=== PATIENT | female | born 1975 ===

== ENCOUNTER 2016-10-22 12:00 | Inpatient (IN) | payer MEDICARE, OTHER ==
[2016-10-22 12:11] VITALS: BMI 32.5
--- NOTE | 2016-10-22 13:09 | C.PDOC ---
Time Seen by Provider: 10/22/16 12:25 Chief Complaint (Nursing): Abdominal Pain Past Medical History Vital Signs: Last Vital Signs Temp 98.5 F 10/22/16 12:11 Pulse 83 10/22/16 12:11 Resp 18 10/22/16 12:11 BP 130/84 10/22/16 12:11 Pulse Ox 97 10/22/16 12:11 - Medical History PMH: Anemia, Anxiety, Arthritis, Back Problems, Bipolar Disorder, Bronchitis, Depression, Diverticulitis, Gastritis, Gastrointestinal Ulcer, Gall Bladder Disease, HTN, Hypercholesterolemia, Hyperlipidemia, Hypothyroidism, Kidney Stones, Migraine, Pancreatitis, Peripheral Edema, Pneumonia, Chronic Kidney Disease, Sexually Transmitted Disease (chlamydia, HSV, syphilis), Sleep Apnea, Chronic Pain Surgical History: Cholecystectomy - [facility] Procedures CENTRAL VENOUS CATHETER PLACEMENT WITH GUIDANCE (05/19/14) CLOSED ENDOSCOPIC BIOPSY OF LARGE INTESTINE (11/28/13) CLOSURE SKIN & SUBCUTANEOUS NEC (11/25/14) COLONOSCOPY (11/28/13) CONTR CEREBR ARTERIOGRAM (01/19/12) ESOPHAGOGASTRODUODENOSCOPY [EGD] W/CLOSED BIOPSY (08/27/14) EXCISION OF DESCENDING COLON, ENDO, DIAGN (01/18/16) EXCISION OF SMALL INTESTINE, ENDO, DIAGN (07/18/15) EXCISION OF STOMACH, ENDO, DIAGN (01/18/16) INJECT ANTIBIOTIC (09/03/14) INJECT/INFUSE ELECTROLYT (11/25/14) INJECT/INFUSE NEC (04/22/15) MAGNETIC RESONANCE IMAGING OF BRAIN AND BRAIN STEM (01/19/12) NEBULIZER THERAPY (05/24/12) NON-INVASIVE MECHANICAL VENTILATION (09/03/14) OCCUPATIONAL THERAPY (09/03/14) PHYSICAL THERAPY NEC (09/03/14) RETROGRADE PYELOGRAM (05/14/14) TU REMOV URETER OBSTRUCT (05/19/14) URETERAL CATHETERIZATION (05/19/14) URETEROSCOPY (05/19/14) VENOUS CATHETERIZATION NEC (05/14/14) Family History: States: Unknown Family Hx - Social History Hx Tobacco Use: No Hx Alcohol Use: No Hx Substance Use: No - Immunization History Hx Tetanus Toxoid Vaccination: No Hx Influenza Vaccination: Yes Hx Pneumococcal Vaccination: No ED Course And Treatment O2 Sat by Pulse Oximetry: 97
[2016-10-22] MEDS ORDERED: Iohexol 240 (50 ml) PO STA (13:55)
[2016-10-22] MEDS ORDERED: Sodium Chloride 0.9% 1,000 ML IV STA (13:55)
[2016-10-22] MEDS ORDERED: Morphine 4 MG/ML VIAL ONE (14:22)
[2016-10-22] MEDS ORDERED: Iohexol 240 (50 ml) ONE (14:22)
[2016-10-22] MEDS ORDERED: Sodium Chloride 0.9% 1,000 ML ONE (14:22)
[2016-10-22 14:27] LABS: BASO % 0.3 % (0.0-2.0); EOS % 0.5 % (0.0-4.0); HEMATOCRIT 40.9 % (34.0-47.0); LYMPH # 1.9 K/uL (1.0-4.3); LYMPH % 21.1 % (20.0-40.0); MEAN CORPUSCULAR HEMOGLOBIN 30.6 pg (27.0-31.0); MEAN PLATELET VOLUME 9.6 fL (7.2-11.7); MONO # 0.6 K/uL (0.0-0.8); NRBC % 0.1 % (0.0-2.0); RED CELL DISTRIBUTION WIDTH 13.7 % (11.5-14.5)
[2016-10-22 14:33] LABS: CHLORIDE 97 mmol/L (98-107)
[2016-10-22 14:34] LABS: POTASSIUM 3.1 mmol/L (3.6-5.2); SODIUM 141 mmol/L (132-148)
[2016-10-22 14:36] LABS: ALB/GLOB RATIO 1.4 (1.0-2.1); ALKALINE PHOSPHATASE 93 U/L (38-126); ALT/SGPT 38 U/L (9-52); AST/SGOT 48 U/L (14-36); BILIRUBIN,TOTAL 0.6 mg/dL (0.2-1.3); BLOOD UREA NITROGEN 13 mg/dL (7-17); CARBON DIOXIDE 27 mmol/L (22-30); GFR AFRICAN-AMERICAN > 60; GLUCOSE,RANDOM 148 mg/dL (65-105); TOTAL PROTEIN 7.3 g/dL (6.3-8.3)
[2016-10-22 14:37] LABS: CALCIUM 9.2 mg/dl (8.6-10.4)
[2016-10-22] MEDS ORDERED: Iodixanol 320 MG/ML 100 ML BOTTLE IV ONE (15:02)
[2016-10-22] MEDS ORDERED: Potassium Chloride 20 mEq ER Tab PO STA (16:22)
[2016-10-22 16:23] LABS: RBC URINE < 1 /hpf (0-3); URINE BILIRUBIN NEGATIVE (NEGATIVE); URINE BLOOD NEGATIVE (NEGATIVE); URINE COLOR Yellow (YELLOW); URINE GLUCOSE (UA) NORMAL (Normal); URINE KETONE NEGATIVE (NEGATIVE); URINE LEUKOCYTE ESTERASE NEG Leu/uL (Negative); URINE PROTEIN NEGATIVE (NEGATIVE); WBC URINE 4 /hpf (0-5)
[2016-10-22] MEDS ORDERED: Potassium Chloride 20 mEq ER Tab PO ONE (16:40)
[2016-10-22] MEDS ORDERED: HYDROmorphone 1 mg/ml ISec IVP STA (16:49)
[2016-10-22] MEDS ORDERED: HYDROmorphone 1 mg/ml ISec ONE (16:53)
--- NOTE | 2016-10-22 17:36 | C.PDOC ---
History Of Present Illness Patient is a 41 y/o female, with history of multiple abdominal surgeries, and bipolar disorder, that presents to the ED for evaluation of upper abdominal pain worse in the LUQ for the last 4 days. Pt reports associated greenish vomiting with blood. Pt also states she had diarrhea, which has resolved now. Pt also reports associated sweating, dizziness, and radiation of pain to her back. Patient was seen here previously for drug seeking behavior. Otherwise, denies any fever, chills, dysuria, hematuria, or any other associated symptoms at this time. Time Seen by Provider: 10/22/16 12:25 Chief Complaint (Nursing): Abdominal Pain History Per: Patient History/Exam Limitations: no limitations Onset/Duration Of Symptoms: Days (4) Current Symptoms Are (Timing): Still Present Location Of Pain/Discomfort: RUQ, LUQ Radiation Of Pain To:: Back Quality Of Discomfort: "Pain" Associated Symptoms: Vomiting, Back Pain. denies: Fever, Chills, Diarrhea, Loss Of Appetite, Chest Pain, Constipation, Urinary Symptoms Exacerbating Factors: None Alleviating Factors: None Recent travel outside of the [place]: No Additional History Per: Patient Abnormal Vaginal Bleeding: No Past Medical History Reviewed: Historical Data, Nursing Documentation, Vital Signs Vital Signs: Last Vital Signs Temp 98.6 F 10/22/16 15:38 Pulse 84 10/22/16 16:59 Resp 20 10/22/16 16:59 BP 122/76 10/22/16 16:59 Pulse Ox 100 10/22/16 17:51 - Medical History PMH: Anemia, Anxiety, Arthritis, Back Problems, Bipolar Disorder, Bronchitis, Depression, Diverticulitis, Gastritis, Gastrointestinal Ulcer, Gall Bladder Disease, HTN, Hypercholesterolemia, Hyperlipidemia, Hypothyroidism, Kidney Stones, Migraine, Pancreatitis, Peripheral Edema, Pneumonia, Chronic Kidney Disease, Sexually Transmitted Disease (chlamydia, HSV, syphilis), Sleep Apnea, Chronic Pain Surgical History: Cholecystectomy - [facility] Procedures CENTRAL VENOUS CATHETER PLACEMENT WITH GUIDANCE (05/19/14) CLOSED ENDOSCOPIC BIOPSY OF LARGE INTESTINE (11/28/13) CLOSURE SKIN & SUBCUTANEOUS NEC (11/25/14) COLONOSCOPY (11/28/13) CONTR CEREBR ARTERIOGRAM (01/19/12) ESOPHAGOGASTRODUODENOSCOPY [EGD] W/CLOSED BIOPSY (08/27/14) EXCISION OF DESCENDING COLON, ENDO, DIAGN (01/18/16) EXCISION OF SMALL INTESTINE, ENDO, DIAGN (07/18/15) EXCISION OF STOMACH, ENDO, DIAGN (01/18/16) INJECT ANTIBIOTIC (09/03/14) INJECT/INFUSE ELECTROLYT (11/25/14) INJECT/INFUSE NEC (04/22/15) MAGNETIC RESONANCE IMAGING OF BRAIN AND BRAIN STEM (01/19/12) NEBULIZER THERAPY (05/24/12) NON-INVASIVE MECHANICAL VENTILATION (09/03/14) OCCUPATIONAL THERAPY (09/03/14) PHYSICAL THERAPY NEC (09/03/14) RETROGRADE PYELOGRAM (05/14/14) TU REMOV URETER OBSTRUCT (05/19/14) URETERAL CATHETERIZATION (05/19/14) URETEROSCOPY (05/19/14) VENOUS CATHETERIZATION NEC (05/14/14) Family History: States: Unknown Family Hx - Social History Hx Tobacco Use: No Hx Alcohol Use: No Hx Substance Use: No - Immunization History Hx Tetanus Toxoid Vaccination: No Hx Influenza Vaccination: Yes Hx Pneumococcal Vaccination: No Review Of Systems Except As Marked, All Systems Reviewed And Found Negative. Constitutional: Positive for: Sweats. Negative for: Fever, Chills Gastrointestinal: Positive for: Vomiting, Abdominal Pain, Hematemesis. Negative for: Diarrhea, Constipation, Hematochezia Genitourinary: Negative for: Dysuria, Frequency, Hematuria Neurological: Positive for: Dizziness. Negative for: Weakness, Numbness, Headache Physical Exam - Physical Exam Appears: Non-toxic, No Acute Distress, Other (tearful) Skin: Normal Color, Warm, Dry Head: Atraumatic, Normacephalic Eye(s): bilateral: Normal Inspection, EOMI Neck: Normal ROM, Supple Chest: Symmetrical Cardiovascular: Rhythm Regular Respiratory: Normal Breath Sounds, No Rales, No Rhonchi, No Wheezing Gastrointestinal/Abdominal: Soft, No Tenderness, No Guarding, No Rebound Neurological/Psych: Oriented x3, Normal Speech, Normal Cognition ED Course And Treatment - Laboratory Results Result Diagrams: 10/22/16 14:14 10/22/16 14:14 O2 Sat by Pulse Oximetry: 100 (RA) Pulse Ox Interpretation: Normal - CT Scan/US Abd Pelvis CT Other Rad Studies (CT/US): Read By Radiologist, Radiology Report Reviewed CT/US Interpretation: FINDINGS: LOWER THORAX: No consolidation/pleural effusion. Bilateral breast augmentation prostheses. LIVER: Diffusely diminished attenuation consistent with fatty infiltration. No mass. No biliary ductal dilatation. GALLBLADDER AND BILE DUCTS: Status post cholecystectomy. PANCREAS: Unremarkable. No gross lesion or ductal dilatation. SPLEEN: Unremarkable. ADRENALS: Unremarkable. No mass. KIDNEYS AND URETERS: 7 mm nonobstructing right upper pole renal calculus. Additional punctate right renal calculi are noted. No hydronephrosis. No ureteral calculus or hydroureter. No renal mass. No left renal calculus. Lobulation of right renal contour possibly developmental. VASCULATURE: Unremarkable. No aortic aneurysm. BOWEL: Unremarkable. No obstruction. No gross mural thickening. APPENDIX: Not identified. No secondary findings to suggest acute appendicitis. PERITONEUM: Unremarkable. No free fluid. No free air. LYMPH NODES: Unremarkable. No enlarged lymph nodes. BLADDER: Suboptimally distended. Grossly unremarkable. REPRODUCTIVE: Normal uterus. BONES: No fracture. Posterior fixation at L4-5 with artificial disc spacer. OTHER FINDINGS: None. IMPRESSION: Nonobstructing right renal calculi, largest 7 mm. Status post cholecystectomy. Fatty liver. Progress Note: Labs, abd & pelvis CT ordered and reviewed. Patient was treated with IV fluids, Zofran, Pantoprazole, Dilaudid, and Morphine. Patient sts she still has severe pain and feels nauseous. Case was d/w who accepts patient to her service and requested GI consult with . Disposition - Disposition Disposition: HOSPITALIZED Disposition Time: 18:59 Condition: FAIR - Clinical Impression Clinical Impression: Intractable abdominal pain, Vomiting - PA / [employer] / Resident Statement MD/DO has reviewed & agrees with the documentation as recorded. - Scribe Statement The provider has reviewed the documentation as recorded by the Carey Go All medical record entries made by the Carey were at my direction and personally dictated by me. I have reviewed the chart and agree that the record accurately reflects my personal performance of the history, physical exam, medical decision making, and the department course for this patient. I have also personally directed, reviewed, and agree with the discharge instructions and disposition. Decision To Admit - Pt Status Changed To: Hospital Disposition Of: Observation - . Bed Request Type: Regular Admitting Physician: Lorena Goldberg Patient Diagnosis: Intractable abdominal pain, Vomiting
--- NOTE | 2016-10-22 17:41 | CT ---
PROCEDURE: CT Abdomen and Pelvis with contrast HISTORY: abd pain COMPARISON: 11/08/2015 TECHNIQUE: Contrast dose: 100 mL Visipaque 320 Radiation dose: Total exam DLP = 948.25 mGy-cm. FINDINGS: LOWER THORAX: No consolidation/pleural effusion. Bilateral breast augmentation prostheses. LIVER: Diffusely diminished attenuation consistent with fatty infiltration. No mass. No biliary ductal dilatation. GALLBLADDER AND BILE DUCTS: Status post cholecystectomy. PANCREAS: Unremarkable. No gross lesion or ductal dilatation. SPLEEN: Unremarkable. ADRENALS: Unremarkable. No mass. KIDNEYS AND URETERS: 7 mm nonobstructing right upper pole renal calculus. Additional punctate right renal calculi are noted. No hydronephrosis. No ureteral calculus or hydroureter. No renal mass. No left renal calculus. Lobulation of right renal contour possibly developmental. VASCULATURE: Unremarkable. No aortic aneurysm. BOWEL: Unremarkable. No obstruction. No gross mural thickening. APPENDIX: Not identified. No secondary findings to suggest acute appendicitis. PERITONEUM: Unremarkable. No free fluid. No free air. LYMPH NODES: Unremarkable. No enlarged lymph nodes. BLADDER: Suboptimally distended. Grossly unremarkable. REPRODUCTIVE: Normal uterus. BONES: No fracture. Posterior fixation at L4-5 with artificial disc spacer. OTHER FINDINGS: None. IMPRESSION: Nonobstructing right renal calculi, largest 7 mm. Status post cholecystectomy. Fatty liver.
[2016-10-22] MEDS ORDERED: Aluminum Hydroxide/Magnesium Hydroxide Susp (30 mL) PO STA (17:50)
[2016-10-22] MEDS ORDERED: Aluminum Hydroxide/Magnesium Hydroxide Susp (30 mL) ONE (18:25)
[2016-10-22] MEDS: HYDROmorphone 1 mg/ml ISec IVP PRN (20:55)
[2016-10-23] MEDS: HYDROmorphone 1 mg/ml ISec IVP PRN ×6 (00:53→22:43)
[2016-10-23 01:14] VITALS: RESP 20
--- NOTE | 2016-10-23 11:36 | CON ---
DATE: 10/23/2016 LOCATION: 351, bed A. This is from Dr. Shekhar Lomas to Dr. Lorena Goldberg. I was called for GI consultation by the admitting MD. The patient is seen and fully examined on 10/23 as requested by the admitting MD. The entire chart is reviewed, including but not limited to, the most recent lab and radiology study results, current and previous medication lists, current and p revious medical events, allergy to medication list as well as all the available current and previous medical records. Case discussed at length with the staff on the floor. HISTORY OF PRESENT ILLNESS: This is a 41-year-old female with known past medical history of gastric ulcer diagnosed about 1 to 1-1/2 years ago by upper endoscopy by myself, was admitted to the hospital with severe abdominal pain persistent for the last 4-5 days associated with nausea, vomiting, diarrh ea. The patient stated that she had episodes of hematemesis yesterday and day before with some fresh and old blood, according to her statement. No reported rectal bleeding, but her pain radiates to th e back with light headache and fatigue. No chest pain. No hematuria, dysuria. No palpitation or shortness of breath. PAST MEDICAL HISTORY: Including, but not limited to: 1. Diabetes mellitus. 2. Bipolar disorder. 3. Depression. 4. Bronchitis. 5. Diverticulosis with episode of diverticulitis. 6. Gastric ulcer. 7. Status post cholecystectomy. 8. Hypertension with hyperlipidemia as well as questionable thyroid disorder and renal stones. 9. The patient has also history of severe anxiety syndrome. FAMILY HISTORY: Unknown. SOCIAL HISTORY: Denied any cigarette smoking or alcohol intake. CURRENT MEDICATIONS: Lists were reviewed. ALLERGY TO MEDICATION: LIST IS REVIEWED INCLUDING TYLENOL, CAFFEINE. After being admitted to the hospital, patient was found to have initially normal CBC, but low potassi um of 3.1 with increased blood glucose level to 148 with AST elevated to 48. Abdominal and pelvic CAT scan was done, report and films seen, indicative of small nonobstructive musa al stone as well as status post cholecystectomy with fatty infiltrate of the liver. PHYSICAL EXAMINATION: GENERAL: A 41-year-old female, awake, alert, oriented, complaining of severe abdominal pain with per sistent nausea and occasional vomiting this morning. VITAL SIGNS: Afebrile with heart rate of 84, respiratory rate 20-22, blood pressure 120/80. HEENT: Showed dry oral mucoid membrane. Nonicteric sclerae. LUNGS: Few scattered crepitation, decreased air entry at bases. HEART: Positive S1 and S2. ABDOMEN: Soft, mildly obese with diffuse generalized tenderness and mild distention. Bowel sounds a re hyperactive. No mass or organomegaly. No rebound tenderness or guarding. RECTAL: The patient refused. EXTREMITIES: With lower extremities edematous changes, mild, no clubbing or cyanosis. NEUROLOGIC: No reported new neurological deficits, sensory or motor. IMPRESSION: 1. Reexacerbation of peptic ulcer disease with reported hematemesis, to rule out gastric versus duod enal ulcers. 2. Diabetes mellitus with diabetic gastroparesis. 3. Known history of diverticulosis with recurrent diverticulitis, patient has recurrent diarrhea rec ently, to rule out recurrent diverticulitis versus pseudomembranous colitis. 4. Multiple past medical history including, but not limited to, hypertension, severe anxiety syndrom e, depression, hyperlipidemia, questionable thyroid disorder as well as diabetes mellitus and osteoar thritis with status post cholecystectomy. SUGGESTION: 1. Continue current management. 2. Repeat serum lipase, amylase level. 3. Add Reglan IV. Flagyl IV. 4. Endoscopic evaluation of the gastrointestinal tract. 5. Cancer markers. 6. Further evaluation and recommendation to follow. Shekhar Lomas MD cc: [id number] TT: 10/23/2016 11:35:53 Confirmation # [id number] Dictation # [id number] en
--- NOTE | 2016-10-23 12:04 | CP.PCM.HP ---
History of Present Illness - History of Present Illness History of Present Illness: came in for vomiting abd pain Present on Admission - Present on Admission Any Indicators Present on Admission: No Review of Systems - Review of Systems Systems not reviewed;Unavailable: Acuity of Condition - Constitutional Constitutional: Daytime Sleepiness, Snoring - EENT Eyes: As Per HPI Ears: As Per HPI Nose/Mouth/Throat: As Per HPI - Cardiovascular Cardiovascular: As Per HPI - Respiratory Respiratory: As Per HPI - Gastrointestinal Gastrointestinal: Abdominal Pain, Constipation, Vomiting - Genitourinary Genitourinary: Change in Urinary Stream, Urinary Frequency, Urinary Hesitance, Urinary Urgency - Reproductive: Female Reproductive:Female: As Per HPI - Menstruation Menstruation: As Per HPI - Musculoskeletal Musculoskeletal: As Per HPI - Integumentary Integumentary: As Per HPI - Neurological Neurological: As Per HPI - Psychiatric Psychiatric: As Per HPI, Anxiety, Depression - Endocrine Endocrine: As Per HPI - Hematologic/Lymphatic Hematologic: As Per HPI Past Patient History - Infectious Disease Hx of Infectious Diseases: None, C.diff - Tetanus Immunizations Tetanus Immunization: Unknown - Past Medical History & Family History Past Medical History?: Yes - Past Social History Smoking Status: Never Smoked - CARDIAC Hx Hypercholesterolemia: Yes Hx Hypertension: Yes Hx Peripheral Edema: Yes - PULMONARY Hx Bronchitis: Yes Hx Pneumonia: Yes Hx Sleep Apnea: Yes - NEUROLOGICAL Hx Migraine: Yes - HEENT Hx HEENT Problems: No - RENAL Hx Chronic Kidney Disease: Yes Hx Kidney Stones: Yes - ENDOCRINE/METABOLIC Hx Hypothyroidism: Yes - HEMATOLOGICAL/ONCOLOGICAL Hx Anemia: Yes - INTEGUMENTARY Hx Dermatological Problems: No - MUSCULOSKELETAL/RHEUMATOLOGICAL Hx Falls: No - GASTROINTESTINAL Hx Diverticulitis: Yes Hx Gall Bladder Disease: Yes Hx Gastritis: Yes Hx Pancreatitis: Yes - GENITOURINARY/GYNECOLOGICAL Hx Sexually Transmitted Disorders: Yes (chlamydia, HSV, syphilis) - PSYCHIATRIC Hx Substance Use: No - SURGICAL HISTORY Hx Cholecystectomy: Yes - ANESTHESIA Hx Anesthesia: Yes Hx Anesthesia Reactions: No Hx Malignant Hyperthermia: No Meds Allergies/Adverse Reactions: Allergies Allergy/AdvReac Type Severity Reaction Status Date / Time acetaminophen [From Fioricet] Allergy RASH Verified 10/22/16 12:11 butalbital [From Fioricet] Allergy RASH Verified 10/22/16 12:11 caffeine [From Fioricet] Allergy RASH Verified 10/22/16 12:11 enoxaparin sodium Allergy RASH Verified 10/22/16 12:11 [From Lovenox] ketorolac tromethamine Allergy Verified 10/22/16 12:11 [From Toradol] meperidine HCl [From Demerol] Allergy RASH Verified 10/22/16 12:11 metoclopramide HCl Allergy RASH Verified 10/22/16 12:11 [From Reglan] prednisone Allergy RASH Verified 10/22/16 12:11 sumatriptan Allergy RASH Verified 10/22/16 12:11 Physical Exam - Constitutional Appears: In Acute Distress - Head Exam Head Exam: NORMAL INSPECTION - Eye Exam Eye Exam: Normal appearance Pupil Exam: NORMAL ACCOMODATION - ENT Exam ENT Exam: Mucous Membranes Dry - Neck Exam Neck exam: Positive for: Full Rom - Respiratory Exam Respiratory Exam: Clear to Auscultation Bilateral - Cardiovascular Exam Cardiovascular Exam: REGULAR RHYTHM - GI/Abdominal Exam GI & Abdominal Exam: Tenderness - Rectal Exam Rectal Exam: NORMAL INSPECTION - Extremities Exam Extremities exam: Positive for: normal inspection - Back Exam Back exam: NORMAL INSPECTION - Neurological Exam Neurological exam: Alert, Oriented x3 - Psychiatric Exam Psychiatric exam: Anxious, Depressed - Skin Skin Exam: Normal Color Results - Vital Signs Recent Vital Signs: Last Vital Signs Temp 98.0 F 10/23/16 08:33 Pulse 80 10/23/16 08:33 Resp 20 10/23/16 08:33 BP 125/83 10/23/16 08:33 Pulse Ox 94 L 10/23/16 08:33 - Labs Result Diagrams: 10/22/16 14:14 10/22/16 14:14 Labs: Laboratory Results - last 24 hr 10/22/16 20:20 POC Glucose (mg/dL) 101 Assessment & Plan - Assessment and Plan (Free Text) Assessment: ac gastritis ac vomiting hyperglycaemia bipolar disorder Plan: admit gi consult and asper orders - Date & Time Date: 10/23/16 Time: 12:08
[2016-10-23] MEDS ORDERED: Bisacodyl 5mg EC Tab PO ONE (12:10)
[2016-10-23] MEDS: Dextrose 5%/0.45% NS 1,000 ML IV SCH (13:30)
[2016-10-23 14:12] LABS: CARCINOEMBRYONIC ANTIGEN 0.6 ng/mL (0-3.0)
[2016-10-23 14:15] LABS: RBC URINE 4 /hpf (0-3); URINE BACTERIA OCC (<OCC); URINE BILIRUBIN NEGATIVE (NEGATIVE); URINE BLOOD NEGATIVE (NEGATIVE); URINE COLOR Amber (YELLOW); URINE GLUCOSE (UA) NORMAL (Normal); URINE KETONE NEGATIVE (NEGATIVE); URINE LEUKOCYTE ESTERASE 3+ Leu/uL (Negative); URINE PROTEIN 1+ mg/dL (NEGATIVE); WBC URINE 406 /hpf (0-5)
[2016-10-23 14:15] LABS: CA 19-9 9.1 U/mL (0-37)
[2016-10-23] MEDS: metroNIDAZOLE IV 500 mg/100 ml 100 ML IVPB SCH ×2 (14:28→21:24)
--- NOTE | 2016-10-23 14:31 | CON ---
DATE: 10/23/2016 CHIEF COMPLAINT AND REASON FOR CONSULTATION: The patient referred by Dr. Goldberg for comanagement and evaluation. The patient has history of bipolar disorder. The patient is well known to me, having seen her numerous times in the past on previous consult. HISTORY OF PRESENT ILLNESS: This is the case of a 41-year-old female with long history of bipolar disorder with multiple psych admissions. The patient was complaining of a 4-day history of abdominal pain in the left upper quadrant. The patient also stated that she was having diarrhea, dizziness and patient reports history of pancreatitis in the past and the patient states that the pain became worse. That is why she came in for treatment. The patient referred for comanagement as the patient has long history of bipolar disorder. She is currently seeing Dr. Garza from [facility] outpatient program and has been doing well, maintained on Valium 5 mg b.i.d. as well as Ambien 10 mg at bedtime. The patient used to take other psych medications in the past, but according to her, she is just maintained on these 2 meds. The patient states she has not taken her Valium in 4 days, The patient, when seen today, was asking if she can have her Valium right away as patient is complaining that she has not taken it in the last 4 days. PAST PSYCHIATRIC HISTORY: History of bipolar with multiple psych admissions. She has been admitted numerous times here in [facility]. History of multiple drug overdoses in the past. PAST MEDICAL HISTORY: Has history of pancreatitis, chronic pain syndrome, history of opiate dependence, history of renal stone, history of syncope, history of lumbar radiculopathy, history of gastritis. DRUG AND ALCOHOL HISTORY: The patient has been dependent on pain medications. ALLERGIES: SHE IS ALLERGIC TO FIORICET, CAFFEINE, BUTALBITAL, LOVENOX, TORADOL , DEMEROL, REGLAN, PREDNISONE, SUMATRIPTAN. PSYCHOSOCIAL HISTORY: The patient is disabled. She said that she is taking care of her granddaughter. FAMILY HISTORY: History of depression and anxiety in the family. LIST OF CURRENT MEDICATIONS: The patient is currently taking Dilaudid, Carafate , Flagyl, Protonix, Reglan, Zofran. VITAL SIGNS: Temperature is 98, pulse rate is 80, blood pressure 125/83, respirations 20, oxygen saturation is 94%. REVIEW OF SYSTEMS: GENERAL: The patient is alert, oriented x 3. She is seen in her room, complaining of anxiety, restlessness and abdominal pain. She said she wants to take her Valium. SKIN: No pruritus. HEENT: No headache, no dizziness. NECK: Supple. RESPIRATORY: No dyspnea. CARDIOVASCULAR: No chest pain. GASTROINTESTINAL: The patient is asking for her Valium. MUSCULOSKELETAL: Feels weak. NEUROLOGIC: Alert, oriented x 3. MENTAL STATUS EXAMINATION: Well-developed female, looks stated age, is about 5 feet 4 inches. The patient is about 190 pounds, anxious, somatic. Affect is reactive. Speech spontaneous. Thought process coherent. Thought content: Complaining about abdominal pain. She is asking for her pain medication as well as Valium. She is also asking for Ambien because she is not sleeping. No paranoia. No suicidal or homicidal ideation. Attention and memory seem to be fair. Insight and judgment limited. Impulse control is fair at this time. IMPRESSION: History of bipolar disorder, mixed as well as history of opiate dependence in the past, history of pancreatitis. Her lipase at this time is 88. PLAN AND RECOMMENDATION: The patient seen, meds reviewed. We will put her back on Valium 5 mg IV b.i.d. and Ambien 5 mg at bedtime. Continue pain meds as ordered. Continue treatment plan as outlined. David Mendes MD cc: [id number] TT: 10/23/2016 14:30:57 Confirmation # [id number] Dictation # [id number] en [id number]
[2016-10-23] MEDS: diaZEpam 10 mg/2 ml Inj IVP SCH (17:37)
[2016-10-24] MEDS: Dextrose 5%/0.45% NS 1,000 ML IV SCH (03:09)
[2016-10-24] MEDS: HYDROmorphone 1 mg/ml ISec IVP PRN ×3 (03:13→14:31)
[2016-10-24] MEDS: metroNIDAZOLE IV 500 mg/100 ml 100 ML IVPB SCH ×2 (05:39→14:47)
[2016-10-24 07:47] VITALS: PULSE 80
[2016-10-24] MEDS ORDERED: Pneumococcal 23-Valent Vaccine IM ONE (10:00)
[2016-10-24] MEDS: diaZEpam 10 mg/2 ml Inj IVP SCH (10:32)
[2016-10-24 12:26] LABS: CHLORIDE 98 mmol/L (98-107); SODIUM 141 mmol/L (132-148)
[2016-10-24 12:27] LABS: POTASSIUM 3.3 mmol/L (3.6-5.2)
[2016-10-24 12:29] LABS: GFR AFRICAN-AMERICAN > 60
[2016-10-24 12:30] LABS: BLOOD UREA NITROGEN 11 mg/dL (7-17); CALCIUM 8.9 mg/dl (8.6-10.4); CARBON DIOXIDE 27 mmol/L (22-30); GLUCOSE,RANDOM 137 mg/dL (65-105)
[2016-10-24] MEDS ORDERED: Lactated Ringer's 500 ML IV ONE (13:13)
[2016-10-24] MEDS ORDERED: Propofol 10 mg/ml Inj (20 ML) ONE (13:18)
[2016-10-24] MEDS ORDERED: Peg-Electrolyte Oral Soln 4L (Golytely) PO ONE (14:30)
[2016-10-24] MEDS: Sucralfate 1 gm/10 ml Oral Susp UD PO SCH ×2 (14:30→17:29)
--- NOTE | 2016-10-24 14:47 | PN ---
DATE: 10/24/2016 SUBJECTIVE: The patient is seen. The patient went for EGD earlier. Nurse reports the patient is noted to be very drowsy, could hardly talk and has been asking for Dilaudid p.r.n. every 4 hours. The patient also on IV Valium 5 mg b.i.d. and also on another IV medication. The patient is on IV Reglan as well as on IV Zofran and noted to be very sedated. We will try to change her Valium IV to 5 mg p.o. q. 12 hours to reduce sedation as patient is hardly able to keep her eyes open. VITAL SIGNS: As stated, temperature is 97.9, pulse rate is 80, blood pressure 133/84, respirations 20, oxygen saturation is 95%. REVIEW OF SYSTEMS: GENERAL: The patient is very drowsy, could hardly talk and keep her eyes open, but still wants pain medication. Staff reports patient has been asking for Dilaudid every 4 hours, complaining of abdominal pain. SKIN: No pruritus. HEENT: No headache. NECK: Supple. RESPIRATORY: No dyspnea. CARDIOVASCULAR: No chest pain. GASTROINTESTINAL: Complaining of recurrent abdominal pain , no vomiting or nausea. EXTREMITIES: Gait is unsteady. MUSCULOSKELETAL: Feels weak. NEUROLOGIC: No tremors. Very drowsy, but knows that she is in the hospital. MENTAL STATUS EXAMINATION: Well-developed female, looks stated age, noted to be very drowsy, seen in her room, still medication seeking, somatic, anxious. Affect is reactive. Speech is slow. Thought process confused at times. Thought content: The patient is still preoccupied about getting her pain meds. No psychosis. No suicidal or homicidal ideation. Attention and memory seem to be limited. Insight and judgment limited. Impulse control is fair at this time. IMPRESSION: History of bipolar disorder as well as opiate dependence, history of abdominal pain, history of pancreatitis. PLAN AND RECOMMENDATIONS: The patient seen, meds reviewed. Continue Ambien 5 mg at bedtime. We will change the Valium IV b.i.d. to 5 mg p.o. q. 12. Continue pain meds as ordered. The patient is on Dilaudid 1 mg q. 4 p.r.n. The patient needs to limit the use of her pain medication as patient is very drowsy at this time. David Mendes MD cc: [id number] TT: 10/24/2016 14:46:23 Confirmation # [id number] Dictation # [id number] en MTDD
[2016-10-24] MEDS ORDERED: Potassium Chloride 20 mEq 100 ML IVPB ONE (15:00)
[2016-10-24] MEDS ORDERED: Bisacodyl 5mg EC Tab PO ONE (17:00)
[2016-10-24 17:12] VITALS: BP 123/76; TEMP 98.8; O2SAT 94
[2016-10-24] MEDS ORDERED: Potassium Chloride 20 mEq ER Tab PO ONE (17:14)
[2016-10-24] MEDS ORDERED: Oxycodone/Acetaminophen 5/325 mg Tab PO ONE (17:14)
--- NOTE | 2016-10-24 17:51 | CP.PCM.PN ---
Subjective - Date & Time of Evaluation Date of Evaluation: 10/24/16 Time of Evaluation: 17:52 - Subjective Subjective: Alert, orientedx3, NAD. Objective - Vital Signs/Intake and Output Vital Signs (last 24 hours): Temp Pulse Resp BP Pulse Ox 98.8 F 80 20 123/76 94 L 10/24/16 15:10 10/24/16 16:37 10/24/16 15:10 10/24/16 15:10 10/24/16 15:10 - Medications Medications: Current Medications Diazepam (Valium) 5 mg PO Q12 [facility] Hydromorphone HCl (Dilaudid) 1 mg IVP Q4H PRN PRN Reason: Pain, severe (8-10) Last Admin: 10/24/16 14:31 Dose: 1 mg Metronidazole (Flagyl) 100 mls @ 100 mls/hr IVPB Q8 [facility] Last Admin: 10/24/16 14:47 Dose: 100 mls/hr Dextrose/Sodium Chloride (Dextrose 5%/0.45% Ns 1000 Ml) 1,000 mls @ 80 mls/hr IV .[id number] [facility] Last Admin: 10/24/16 03:09 Dose: Not Given Metoclopramide HCl (Reglan) 5 mg IVP ACHS [facility] Last Admin: 10/24/16 17:30 Dose: Not Given Ondansetron HCl (Zofran Inj) 4 mg IVP Q6H PRN PRN Reason: Nausea/Vomiting Last Admin: 10/24/16 10:29 Dose: 4 mg Pantoprazole Sodium (Protonix Inj) 40 mg IVP DAILY [facility] Last Admin: 10/24/16 10:30 Dose: 40 mg Sucralfate (Carafate Oral Susp) 1 gm PO TIDAC [facility] Last Admin: 10/24/16 17:29 Dose: 1 gm Zolpidem Tartrate (Ambien) 5 mg PO HS [facility] Last Admin: 10/23/16 21:24 Dose: 5 mg Assessment and Plan - Assessment and Plan (Free Text) Assessment: Patient is seen and examined. Alert, responsive, still with some abdominal pain. NAD. S/P EGD, has gastritis. As per DR Goldberg will discharge and schedule colonoscopy as outpatient. RX given for flagyl and protonic and zofran PRN. Advised to avoid alcohol and spicy and fatty foods. To follow up with PMD DR Stanley IN 1 WEEK. Patient verbalized understanding of instructions given.
== END 2016-10-24 18:00 | disposition home or self-care (01) | DRG 392 ==
LOC: C.ER 12:00 → C.9E 18:55 → C.3T 21:26 → OBSVTOIN 10-24 15:48
PROVIDERS: ADMIT Internal Medicine; ATTEND Internal Medicine
PROC: 0DB68ZX Excision of Stomach, Via Natural or Artificial Opening Endoscopic, Diagnostic (ICD-10-PCS; principal; 2016-10-24 13:10)
DX: K29.00 Acute gastritis without bleeding (principal); E11.43 Type 2 diabetes mellitus with diabetic autonomic (poly)neuropathy; E11.22 Type 2 diabetes mellitus with diabetic chronic kidney disease; K31.84 Gastroparesis; E11.65 Type 2 diabetes mellitus with hyperglycemia; F11.20 Opioid dependence, uncomplicated; F31.60 Bipolar disorder, current episode mixed, unspecified; K44.9 Diaphragmatic hernia without obstruction or gangrene; E03.9 Hypothyroidism, unspecified; I12.9 Hypertensive chronic kidney disease with stage 1 through stage 4 chronic kidney disease, or unspecified chronic kidney disease; N18.9 Chronic kidney disease, unspecified; F41.8 Other specified anxiety disorders; G47.30 Sleep apnea, unspecified; G89.29 Other chronic pain; M19.90 Unspecified osteoarthritis, unspecified site; E78.5 Hyperlipidemia, unspecified; Z79.4 Long term (current) use of insulin; Z79.84 Long term (current) use of oral hypoglycemic drugs; Z90.49 Acquired absence of other specified parts of digestive tract; Z87.01 Personal history of pneumonia (recurrent); Z88.6 Allergy status to analgesic agent; Z88.8 Allergy status to other drugs, medicaments and biological substances

== ENCOUNTER 2017-01-26 13:47 | Emergency (ER) | payer MEDICAID, MEDICARE ==
[2017-01-26 13:48] VITALS: BMI 32.5
[2017-01-26 14:00] VITALS: BP 149/78; RESP 18; TEMP 98.4
[2017-01-26] MEDS ORDERED: Sodium Chloride 0.9% 1,000 ML IV ONE (14:07)
--- NOTE | 2017-01-26 14:40 | C.PDOC ---
History Of Present Illness 41 y/o female presents to ED with c/o nausea, vomiting, and diarrhea onset this morning. Patient notes she ate [place] food last night. Conflicting reports whether or not she ran out of chronic narcotic medications prescribed for chronic lower back pain, pending spinal surgery. Prior records indicate prior lumbar MRI 09/15 - grossly negative, nothing surgical. CT abdomen/pelvis x 33 since 2011. Normal chest CT x [address] x 21 since August 2011. Pt in local psych outpatient therapy but lost to follow up and no psych meds besides sleep meds. Time Seen by Provider: 01/26/17 13:59 Chief Complaint (Nursing): Abdominal Pain History Per: Patient History/Exam Limitations: no limitations Onset/Duration Of Symptoms: Hrs Current Symptoms Are (Timing): Still Present Location Of Pain/Discomfort: Diffuse Radiation Of Pain To:: None Associated Symptoms: Nausea, Vomiting, Diarrhea. denies: Fever, Back Pain, Chest Pain, Urinary Symptoms Recent travel outside of the [place]: No Past Medical History Reviewed: Historical Data, Nursing Documentation, Vital Signs Vital Signs: Last Vital Signs Temp 98.4 F 01/26/17 13:59 Pulse 92 H 01/26/17 15:45 Resp 18 01/26/17 15:45 BP 149/78 01/26/17 13:59 Pulse Ox 100 01/27/17 00:08 - Medical History PMH: Anemia, Anxiety, Arthritis, Back Problems, Bipolar Disorder, Bronchitis, Depression, Diverticulitis, Gastritis, Gastrointestinal Ulcer, Gall Bladder Disease, HTN, Hypercholesterolemia, Hyperlipidemia, Hypothyroidism, Kidney Stones, Migraine, Pancreatitis, Peripheral Edema, Pneumonia, Chronic Kidney Disease, Sexually Transmitted Disease (chlamydia, HSV, syphilis), Sleep Apnea, Chronic Pain Surgical History: Cholecystectomy - [facility] Procedures CENTRAL VENOUS CATHETER PLACEMENT WITH GUIDANCE (05/19/14) CLOSED ENDOSCOPIC BIOPSY OF LARGE INTESTINE (11/28/13) CLOSURE SKIN & SUBCUTANEOUS NEC (11/25/14) COLONOSCOPY (11/28/13) CONTR CEREBR ARTERIOGRAM (01/19/12) ESOPHAGOGASTRODUODENOSCOPY [EGD] W/CLOSED BIOPSY (08/27/14) EXCISION OF DESCENDING COLON, ENDO, DIAGN (01/18/16) EXCISION OF SMALL INTESTINE, ENDO, DIAGN (07/18/15) EXCISION OF STOMACH, ENDO, DIAGN (10/24/16) INJECT ANTIBIOTIC (09/03/14) INJECT/INFUSE ELECTROLYT (11/25/14) INJECT/INFUSE NEC (04/22/15) MAGNETIC RESONANCE IMAGING OF BRAIN AND BRAIN STEM (01/19/12) NEBULIZER THERAPY (05/24/12) NON-INVASIVE MECHANICAL VENTILATION (09/03/14) OCCUPATIONAL THERAPY (09/03/14) PHYSICAL THERAPY NEC (09/03/14) RETROGRADE PYELOGRAM (05/14/14) TU REMOV URETER OBSTRUCT (05/19/14) URETERAL CATHETERIZATION (05/19/14) URETEROSCOPY (05/19/14) VENOUS CATHETERIZATION NEC (05/14/14) Family History: States: Unknown Family Hx - Social History Hx Tobacco Use: No Hx Alcohol Use: No Hx Substance Use: No - Immunization History Hx Tetanus Toxoid Vaccination: No Hx Influenza Vaccination: Yes Hx Pneumococcal Vaccination: No Review Of Systems Except As Marked, All Systems Reviewed And Found Negative. Constitutional: Negative for: Fever, Chills Cardiovascular: Negative for: Chest Pain Respiratory: Negative for: Cough, Shortness of Breath Gastrointestinal: Positive for: Nausea, Vomiting, Diarrhea Genitourinary: Negative for: Dysuria Skin: Negative for: Rash Neurological: Negative for: Headache, Dizziness Physical Exam - Physical Exam Appears: Non-toxic, Other (obese) Skin: Warm, Dry Head: Atraumatic, Normacephalic Eye(s): bilateral: EOMI, Other (dilated pupils) Chest: Symmetrical Cardiovascular: Rhythm Regular Respiratory: Normal Breath Sounds, No Rales, No Rhonchi, No Wheezing Gastrointestinal/Abdominal: Soft, Tenderness (vague), No Distention, No Guarding , No Rebound Back: Normal Inspection, No CVA Tenderness Extremity: Normal ROM, Capillary Refill (< 2 sec. ) Neurological/Psych: Oriented x3, Normal Speech, Normal Cognition ED Course And Treatment - Laboratory Results Lab Interpretation: Normal (FS 160's) O2 Sat by Pulse Oximetry: 100 (RA) Pulse Ox Interpretation: Normal Progress Note: Labs ordered but unable to achieve IV access after multiple failed attempts. Treated with Zofran PO Critical Care Time - Critical Care Note Total Time (in mins): 90 Documented critical care: time excludes all time spent performing seperately billable procedures. Medical Decision Making Medical Decision Making: n/v/d (not witnessed in ED) acute on chronic pain issues related to chronic lower back pain This pt has had over 200 radiological studies in our hospital system alone ( [place] [facility] [place] likely a similar number of studies there, and similar bizarre and demanding presentations there) No evidence of gastroparesis nor studies to support. Call back from Dr. Dixon pending, latest upper endoscopy unremarkable. More likely pt suffers from chronic narcotic induced constipation- indeed most of her abdominal CT's show moderate to large stools Pt with extensive psychiatric history and seems poorly controlled, indeed psychiatrically disabled though lost to follow-up. Pt may be self-medicating anxiety and bipolar disease with the present narcotic/benzo regimen. MRI LS spine 09/15 shows no significant lesions requiring neurosurgery/spinal surgery as reported by this pt, and does not seem to justify the extensive high-dose narcotics/benzo regimen for this pt , no back pain on eval today (and no pain meds today), and high potential for accidental/intentional overdose in this psychiatric pt. Unclear why alternative chronic pain regimens have not been considered or attempted. [place] [employer] OPERATOR reviewed: last filled 12/31/16: Oxycodone 15 mg x 120 tabs OxyContin 20 mg x 90 tabs Valium 5 mg x 60 tabs pt's symtpoms today may more likely be c/w narcotics withdrawal (n/v/d, pupilary mydriasis) and/or food poisoning from [place] food last night labs difficult to obtain and deferred to repeat considering grossly normal labs in similar presentations. Stories conflict as pt initially said she ran out of oxycodone, then claims she could not tolerate taking them today but has some @ home. CT abd/pelvis (despite pt's dramatic presentation and BIBA) as pt has already had THIRTY THREE CT Abd/Pelvis since 05/11 without significant findings, belly benign, and other more likely dx prevail. [address] since 09/[address], all without significant findings. Consider Somatization of underlying psychiatric illness, Munchausen's Syndrome, Drug Seeking Behavior. Failed attempts to d/[facility] Stanley- [facility], will continue to reach out to this PMD This pt represents a high risk of accidental/intentional overdose of controlled substances with an exceptionally high-dose regimen of different class meds, combined with sleep meds and probable sleep apnea and unstable psychiatric illness. 1630: after discharge pt refused to leave, demanding pain meds, persistent normal exam pt asking to be seen by other doctors, patient rep involved. Disposition Doctor Will See Patient In The: Office Counseled Patient/Family Regarding: Studies Performed, Diagnosis - Disposition Referrals: Napoleon Stanley MD [Staff Provider] - Disposition: HOME/ ROUTINE Disposition Time: 15:32 Condition: GOOD Additional Instructions: Zofran ODT 4 mg every 6 hours as needed Gatorade and clear liquids today Follow-up with Dr. Stanley Consider more regular psychiatric follow-up in our [facility] Avoid narcotic and benzodiazepine medications for your chronic back pain, seek a chronic pain specialist for evaluation. Prescriptions: Ondansetron ODT [Zofran ODT] 4 mg PO Q8H PRN #6 odt PRN Reason: Nausea/Vomiting Instructions: Gastroenteritis (ED), Opioid Withdrawal (ED) - Clinical Impression Clinical Impression: Gastroenteritis, Drug-seeking behavior, Bipolar 2 disorder, major depressive episode - Scribe Statement The provider has reviewed the documentation as recorded by the Carey De La Garza Provider Attestation: All medical record entries made by the Carey were at my direction and personally dictated by me. I have reviewed the chart and agree that the record accurately reflects my personal performance of the history, physical exam, medical decision making, and the department course for this patient. I have also personally directed, reviewed, and agree with the discharge instructions and disposition.
[2017-01-26 16:16] VITALS: PULSE 92
[2017-01-26 16:25] VITALS: O2SAT 100
== END 2017-01-26 16:38 | disposition home or self-care (01) ==
LOC: C.ER 13:47
DX: F31.81 Bipolar II disorder (principal); K52.9 Noninfective gastroenteritis and colitis, unspecified; Z76.5 Malingerer [conscious simulation]; F32.9 Major depressive disorder, single episode, unspecified

== ENCOUNTER 2017-08-10 13:21 | Emergency (ER) | payer MEDICARE ==
[2017-08-10 13:21] VITALS: BMI 32.5
[2017-08-10 13:57] LABS: HCG,QUALITATIVE URINE NEGATIVE (NEGATIVE); SQUAMOUS EPITHIAL 3 /hpf (0-5); URINE BILIRUBIN NEGATIVE (NEGATIVE); URINE BLOOD NEGATIVE (NEGATIVE); URINE CALCIUM OXALATE CRYSTALS RARE /hpf (<OCC); URINE CLARITY Clear (Clear); URINE COLOR Yellow (YELLOW); URINE GLUCOSE (UA) NORMAL (Normal); URINE LEUKOCYTE ESTERASE TRACE Leu/uL (Negative); URINE NITRATE NEGATIVE (NEGATIVE); URINE PROTEIN NEGATIVE (NEGATIVE); URINE UROBILINOGEN NORMAL mg/dL (0.2-1.0)
[2017-08-10] MEDS ORDERED: Sodium Chloride 0.9% 1,000 ML ONE (14:30)
[2017-08-10] MEDS: Sodium Chloride 0.9% 1,000 ML IV ONE (14:30)
[2017-08-10 14:36] LABS: BASO # 0.1 K/uL (0.0-0.2); BASO % 0.6 % (0.0-2.0); EOS # 0.2 K/uL (0.0-0.7); HEMOGLOBIN 13.6 g/dL (11.0-16.0); LYMPH # 5.3 K/uL (1.0-4.3); LYMPH % 54.3 % (20.0-40.0); MEAN CELL VOLUME 90.3 fL (81.0-99.0); MEAN CORPUSCULAR HGB CONC 34.3 g/dL (33.0-37.0); MEAN PLATELET VOLUME 9.5 fL (7.2-11.7); MONO # 0.9 K/uL (0.0-0.8); MONO % 8.8 % (0.0-10.0); NEUT # 3.3 K/uL (1.8-7.0); NEUT % 34.3 % (50.0-75.0); NRBC % 0.1 % (0.0-2.0); RBC 4.39 Mil/uL (3.80-5.20); RED CELL DISTRIBUTION WIDTH 13.3 % (11.5-14.5); WHITE BLOOD COUNT 9.7 K/uL (4.8-10.8)
[2017-08-10] MEDS: LIDOCAINE IV STA (14:46)
[2017-08-10] MEDS: SODIUM CHLORIDE 0.9% IV STA (14:46)
[2017-08-10 14:48] LABS: ALB/GLOB RATIO 1.3 (1.0-2.1); ALBUMIN 4.3 g/dL (3.5-5.0); ALT/SGPT 21 U/L (9-52); AST/SGOT 30 U/L (14-36); BLOOD UREA NITROGEN 14 mg/dL (7-17); CALCIUM 8.8 mg/dl (8.6-10.4); GFR AFRICAN-AMERICAN > 60; GFR NON-AFRICAN AMERICAN > 60; LIPASE 143 U/L (23-300)
[2017-08-10] MEDS ORDERED: Morphine 4 MG/ML VIAL ONE (16:26)
--- NOTE | 2017-08-10 16:29 | C.PDOC ---
History Of Present Illness 41 yr old female presents to the ER with complaints of severe right flank pain, radiating to the right lower abdomen and is associated with nausea and vomiting for the past 2 days. Patient reports history of kidney stones and was treated by Dr. Jacob. Patient was seen by Dr. Jacob today and was sent to the ER for further evaluation. Patient denies fever, chills, chest pain, SOB, diarrhea, constipation, dysuria, GI bleeding, trauma, weakness or numbness. Time Seen by Provider: 08/10/17 14:04 Chief Complaint (Nursing): Back Pain History Per: Patient History/Exam Limitations: no limitations Onset/Duration Of Symptoms: Days (2) Past Medical History Reviewed: Historical Data, Nursing Documentation, Vital Signs Vital Signs: Last Vital Signs Temp 98.2 F 08/10/17 17:45 Pulse 81 08/10/17 17:45 Resp 16 08/10/17 17:45 BP 126/69 08/10/17 17:45 Pulse Ox 98 08/10/17 18:25 - Medical History PMH: Anemia, Anxiety, Arthritis, Back Problems, Bipolar Disorder, Bronchitis, Depression, Diverticulitis, Gastritis, Gastrointestinal Ulcer, Gall Bladder Disease, HTN, Hypercholesterolemia, Hyperlipidemia, Hypothyroidism, Kidney Stones, Migraine, Pancreatitis, Peripheral Edema, Pneumonia, Chronic Kidney Disease, Sexually Transmitted Disease (chlamydia, HSV, syphilis), Sleep Apnea, Chronic Pain Surgical History: Cholecystectomy - [facility] Procedures CENTRAL VENOUS CATHETER PLACEMENT WITH GUIDANCE (05/19/14) CLOSED ENDOSCOPIC BIOPSY OF LARGE INTESTINE (11/28/13) CLOSURE SKIN & SUBCUTANEOUS NEC (11/25/14) COLONOSCOPY (11/28/13) CONTR CEREBR ARTERIOGRAM (01/19/12) ESOPHAGOGASTRODUODENOSCOPY [EGD] W/CLOSED BIOPSY (08/27/14) EXCISION OF DESCENDING COLON, ENDO, DIAGN (01/18/16) EXCISION OF SMALL INTESTINE, ENDO, DIAGN (07/18/15) EXCISION OF STOMACH, ENDO, DIAGN (10/24/16) INJECT ANTIBIOTIC (09/03/14) INJECT/INFUSE ELECTROLYT (11/25/14) INJECT/INFUSE NEC (04/22/15) MAGNETIC RESONANCE IMAGING OF BRAIN AND BRAIN STEM (01/19/12) NEBULIZER THERAPY (05/24/12) NON-INVASIVE MECHANICAL VENTILATION (09/03/14) OCCUPATIONAL THERAPY (09/03/14) PHYSICAL THERAPY NEC (09/03/14) RETROGRADE PYELOGRAM (05/14/14) TU REMOV URETER OBSTRUCT (05/19/14) URETERAL CATHETERIZATION (05/19/14) URETEROSCOPY (05/19/14) VENOUS CATHETERIZATION NEC (05/14/14) Family History: States: No Known Family Hx - Social History Hx Tobacco Use: No Hx Alcohol Use: No Hx Substance Use: No - Immunization History Hx Tetanus Toxoid Vaccination: No Hx Influenza Vaccination: Yes Hx Pneumococcal Vaccination: No Review Of Systems Except As Marked, All Systems Reviewed And Found Negative. Constitutional: Negative for: Fever, Chills Cardiovascular: Negative for: Chest Pain Respiratory: Negative for: Shortness of Breath Gastrointestinal: Positive for: Nausea, Vomiting, Abdominal Pain (radiating pain to the right lower abdomen). Negative for: Diarrhea, Constipation Genitourinary: Negative for: Dysuria Musculoskeletal: Positive for: Back Pain (right flank pain) Neurological: Negative for: Weakness, Numbness Physical Exam - Physical Exam Appears: Non-toxic, No Acute Distress Skin: Warm, Dry, No Rash Head: Atraumatic, Normacephalic Eye(s): bilateral: Normal Inspection, PERRL, EOMI Oral Mucosa: Moist Neck: Normal ROM, Supple Chest: Symmetrical Cardiovascular: Rhythm Regular, No Friction Rub, No Murmur Respiratory: Normal Breath Sounds, No Rales, No Rhonchi, No Stridor, No Wheezing Gastrointestinal/Abdominal: Soft, Tenderness (mild diffuse tenderness), No Guarding, No Rebound Back: CVA Tenderness (moderate right CVA tenderness), No Vertebral Tenderness, No Paraspinal Tenderness Extremity: Normal ROM, No Swelling Neurological/Psych: Oriented x3, Normal Speech, Normal Motor Gait: Steady ED Course And Treatment - Laboratory Results Result Diagrams: 08/10/17 14:28 08/10/17 14:28 O2 Sat by Pulse Oximetry: 98 (RA) Pulse Ox Interpretation: Normal - CT Scan/US CT - Abd & Pelvis Other Rad Studies (CT/US): Read By Radiologist, Radiology Report Reviewed CT/US Interpretation: PROCEDURE: CT Abdomen and Pelvis without Oral or IV contrast. HISTORY: R flank pain, R sided abd pain. COMPARISON: CT abdomen and pelvis with IV contrast performed 10/22/16. TECHNIQUE: Contiguous axial images of the abdomen and pelvis. No oral or IV contrast administered. Coronal and Sagittal reformats generated and reviewed. Radiation dose: Total exam DLP = 757.72 mGy-cm. This CT exam was performed using one or more of the following dose reduction techniques: Automated exposure control, adjustment of the mA and/ or kV according to patient size, and/or use of iterative reconstruction technique. FINDINGS: There is limited evaluation of the solid organs without the administration of IV contrast. LOWER THORAX: No visible consolidation, pleural effusion, or pneumothorax. Partially imaged bilateral breast prostheses. LIVER: Unremarkable unenhanced appearance. GALLBLADDER AND BILE DUCTS: Cholecystectomy. PANCREAS: Unremarkable unenhanced appearance. SPLEEN : Unremarkable unenhanced appearance. ADRENALS: Unremarkable unenhanced appearance. KIDNEYS AND URETERS: No hydronephrosis or obstructing renal calculus. Nonobstructing sub cm right renal calculi. BLADDER: The urinary bladder appears unremarkable. REPRODUCTIVE: Uterus is present. APPENDIX: The appendix appears within normal limits of caliber. No secondary signs of acute appendicitis. BOWEL: The stomach is nondistended. Lack of oral contrast limits evaluation for bowel pathology. The bowel loops appear within normal limits of caliber without evidence of intestinal obstruction. PERITONEUM : No significant free fluid. No definite free air. LYMPH NODES: No bulky lymphadenopathy identified. VASCULATURE: No aortic aneurysm. BONES: Posterior L4-L5 lumbar fusion with intervertebral disc spacer present. OTHER FINDINGS: None. IMPRESSION: No acute findings identified. See above. Medical Decision Making Medical Decision Making: PLAN: * CT - Abd & Pelvis * CBC * CMP * HCG * Urinalysis * Morphine IVP * Zofran IVP * Lidocaine IV * Sodium Chloride IV On first re-exam, the patient reports only mild improvement to Lidocaine IV. Morphine IV ordered. Case was discussed with Dr. Jacob who states that the patient exhibits drug seeking behavior. [place] INSPECTOR F[employer]ROUS WALLBOARD was viewed and sees that patient has narcotics RX. On second re-exam, the patient reports improvement of symptoms. Abdomen is soft , non-tender and patient is tolerating PO well. The case was discussed with Dr. Jacob (urologist) who states that the patient is able to be discharged home. Patient wants to be treated for UTI as she feels dysuria. Disposition - Disposition Referrals: [facility] [Outside] Disposition: HOME/ ROUTINE Disposition Time: 17:21 Condition: GOOD Additional Instructions: Follow up with the medical doctor within 1-2 days. Return if worsened. Prescriptions: Ciprofloxacin [Cipro] 1 tab PO BID #14 tab metroNIDAZOLE [Flagyl] 500 mg PO BID #14 tab Ondansetron ODT [Zofran ODT] 1 odt PO BID PRN #10 odt PRN Reason: Nausea/Vomiting Instructions: Acute Low Back Pain (ED) Forms: [facility] (Persian) - Clinical Impression Clinical Impression: Thoracic back pain, Abdominal pain, UTI (urinary tract infection) - PA / PEANUT SHAKER / Resident Statement MD/DO has reviewed & agrees with the documentation as recorded. - Scribe Statement The provider has reviewed the documentation as recorded by the Scribe Estefani Guerrier All medical record entries made by the Brittaniibdaniele were at my direction and personally dictated by me. I have reviewed the chart and agree that the record accurately reflects my personal performance of the history, physical exam, medical decision making, and the department course for this patient. I have also personally directed, reviewed, and agree with the discharge instructions and disposition.
[2017-08-10 17:55] VITALS: BP 126/69; PULSE 81; RESP 16; TEMP 98.2
[2017-08-10 18:25] VITALS: O2SAT 98
== END 2017-08-10 18:05 | disposition home or self-care (01) ==
LOC: C.ER 13:21
DX: N39.0 Urinary tract infection, site not specified (principal); M54.6 Pain in thoracic spine; R10.9 Unspecified abdominal pain; I12.9 Hypertensive chronic kidney disease with stage 1 through stage 4 chronic kidney disease, or unspecified chronic kidney disease; N18.9 Chronic kidney disease, unspecified; E78.5 Hyperlipidemia, unspecified; E78.00 Pure hypercholesterolemia, unspecified; E03.9 Hypothyroidism, unspecified
CPT/HCPCS: 74176; 80053; 81001; 83690; 84703; 85025; 87086; 96361; 96374; 96375; 96376; 99285; J2001; J2270; J2405; J7040

== ENCOUNTER 2017-11-06 08:30 | Day surgery (SDC) | payer MEDICARE ==
[2017-11-06] MEDS ORDERED: Lactated Ringer's 1,000 ML IV ONE ×2 (09:55→13:35)
[2017-11-06] MEDS ORDERED: HYDROmorphone 0.5 mg/0.5 ml ISec IVP PRN (11:22)
[2017-11-06] MEDS ORDERED: Midazolam 2 MG/2 ML VIAL ONE (12:37)
[2017-11-06] MEDS ORDERED: Propofol 10 mg/ml Inj (20 ML) ONE (12:37)
[2017-11-06] MEDS ORDERED: Lidocaine 2% Jelly (Uro-Jet) ONE (12:55)
[2017-11-06] MEDS ORDERED: Iohexol 240 (50 ml) ONE (12:55)
[2017-11-06] MEDS ORDERED: Ciprofloxacin 400mg/200ml D5W 400 MG/200 ML BAG IVPB ONE (12:55)
[2017-11-06] MEDS ORDERED: Gentamicin 160 MG in Sodium Chloride 0.9% 100 ML IVPB ONE (13:00)
[2017-11-06] MEDS ORDERED: DiphenhydrAMINE 50 mg/ml Inj ONE (13:37)
--- NOTE | 2017-11-06 13:42 | PCM.SURG1 ---
Surgeon's Initial Post Op Note - Surgeon's Notes Surgeon: Nidia Information Officer: NA Type of Anesthesia: General LMA Anesthesia Administered By: staff Pre-Operative Diagnosis: Right renal/right ureter al calculi Operative Findings: same Post-Operative Diagnosis: Right ureteral calculi/renal calculi Operation Performed: Right ureteroscopy/laser lithotripsy/cysto insert stent Specimen/Specimens Removed: na Estimated Blood Loss: EBL {In ML}: 0 Blood Products Given: N/A Drains Used: No Drains Post-Op Condition: Good Date of Surgery/Procedure: 11/06/17 Time of Surgery/Procedure: 13:42
--- NOTE | 2017-11-06 14:16 | RAD ---
PROCEDURE: Intraoperative Fluoroscopy. HISTORY: RT URETERAL STONE FINDINGS: Fluoroscopic assistance was provided for cystogram with right nephro ureteral stent placement. Please refer to the operative report from [facility] Men[place].
[2017-11-06] MEDS: HYDROmorphone 0.5 mg/0.5 ml ISec IVP PRN ×2 (14:19→15:01)
[2017-11-06 16:19] VITALS: BP 113/65; PULSE 79; RESP 20; TEMP 97; O2SAT 97
--- NOTE | 2017-11-06 18:07 | RAD ---
HISTORY: RT URETERAL STONE COMPARISON: 08/18/2017 FINDINGS: BOWEL: Constipation without fecal impaction or obstruction. BONES: No significant interval change compared to the prior examination(s). OTHER FINDINGS: Position of the double J stent catheter(s): Satisfactory IMPRESSION: Satisfactory position of double-J stent catheter on the right.
--- NOTE | 2017-11-20 15:22 | OP ---
PROCEDURE DATE: 11/06/2017 PREOPERATIVE DIAGNOSIS: Right ureteral calculi. POSTOPERATIVE DIAGNOSIS: Right ureteral calculi. PROCEDURE: Ureteroscopy, laser lithotripsy, insertion of stent. FINDINGS: Lower third ureteral calculi. SURGEON: Micheal Jacob MD DESCRIPTION OF PROCEDURE: Prior to the procedure, a detailed informed consent was obtained from the patient. The patient's x-rays were reviewed and the patient was brought into the room and draped and prepped in the usual manner. She was cystoscoped with #21 Storz panendoscope. A guidewire was passed into the right ureteral orifice and was manipulated above the stone. The cystoscope was removed leaving the guidewire in place and the ureteroscope was inserted with a separate guidewire within the ureteroscope. This was passed up the right ureter into the renal pelvis as a safety wire and then the ureteral orifice was hydrodilated and the ureteroscope was passed up till the stone was visualized. The wire within the scope was removed and replaced with laser fiber. The laser fiber was used to fragment the stone into very tiny small pieces. The patient tolerated this procedure well. The scope was backed out and then a 6-Sami double-J stent was passed over the original guidewire and positioned properly with the distal end in the renal pelvis and the proximal end in the bladder. The patient tolerated this procedure well. She was sent to the recovery area in good condition. She is aware that she needs to follow up for stent removal. Prescription for Cipro was given to the patient with detailed postoperative instructions. Micheal Jacob MD
== END 2017-11-06 17:07 | disposition home or self-care (01) ==
LOC: C.SDS 08:30
PROVIDERS: ATTEND Urology
DX: N20.2 Calculus of kidney with calculus of ureter (principal); Z88.8 Allergy status to other drugs, medicaments and biological substances; Z79.84 Long term (current) use of oral hypoglycemic drugs; G47.33 Obstructive sleep apnea (adult) (pediatric); E11.9 Type 2 diabetes mellitus without complications; E78.5 Hyperlipidemia, unspecified; I10 Essential (primary) hypertension; M79.7 Fibromyalgia; K21.9 Gastro-esophageal reflux disease without esophagitis
CPT/HCPCS: 52356; 74018; 82948; C1758; C1769; C2617; J0744; J1170; J1580; J2405; J7120

== ENCOUNTER 2017-11-20 08:02 | Day surgery (SDC) | payer MEDICARE ==
[2017-11-20] MEDS ORDERED: Gentamicin 160 MG in Sodium Chloride 0.9% 100 ML IVPB ONE (10:42)
[2017-11-20] MEDS ORDERED: Ciprofloxacin 400mg/200ml D5W 400 MG/200 ML BAG IVPB ONE (10:55)
[2017-11-20] MEDS ORDERED: Propofol 10 mg/ml Inj (20 ML) ONE (11:03)
[2017-11-20] MEDS ORDERED: Midazolam 2 MG/2 ML VIAL ONE (11:03)
[2017-11-20] MEDS ORDERED: Lidocaine 2% Jelly (Uro-Jet) ONE (11:15)
--- NOTE | 2017-11-20 11:27 | PCM.SURG1 ---
Surgeon's Initial Post Op Note - Surgeon's Notes Surgeon: Nidia Dispatcher Street Department: N/a Type of Anesthesia: General Mask Anesthesia Administered By: staff Pre-Operative Diagnosis: Right ureteral stent/hx calculi Operative Findings: Right ureteral calculi no evidence of calculi Post-Operative Diagnosis: same Operation Performed: Cystoscopy and removal of stent Specimen/Specimens Removed: stent Estimated Blood Loss: EBL {In ML}: 0 Blood Products Given: N/A Drains Used: No Drains Post-Op Condition: Good Date of Surgery/Procedure: 11/20/17 Time of Surgery/Procedure: 11:28
[2017-11-20] MEDS ORDERED: Lactated Ringer's 1,000 ML IV SCH (11:30)
[2017-11-20] MEDS ORDERED: HYDROmorphone 0.5 mg/0.5 ml ISec IVP PRN (11:31)
[2017-11-20 11:52] VITALS: O2SAT 100
[2017-11-20 12:53] VITALS: BP 147/71; RESP 16; TEMP 98.9
[2017-11-20 13:08] VITALS: PULSE 69
--- NOTE | 2017-11-20 15:25 | OP ---
PROCEDURE DATE: 11/20/2017 PREOPERATIVE DIAGNOSIS: Right ureteral stent without calculi. POSTOPERATIVE DIAGNOSIS: Right ureteral stent without calculi. PROCEDURE: KUB and cysto removal of the stent. SURGEON: Micheal Jacob MD DESCRIPTION OF PROCEDURE: Prior to the procedure, the patient was asked to sign a detailed informed consent. She was apprised of all the risks and complications of the procedure and alternative methods of managing indwelling stent. She was brought into the room and received anesthesia. After a KUB was performed, she was cystoscoped with a #21 Storz panendoscope. The bladder was entered atraumatically. There was no evidence of urothelial tumor or stone. The left ureteral orifice effluxed clear urine and the right had a stent protruding through it. It was grasped and removed. The patient tolerated this procedure very well and was sent to the recovery area in good condition. In the recovery once awakened, the patient was referred to the addiction services here in [facility] for consultation. 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 The patient said she understood. Micheal Jacob MD
== END 2017-11-20 13:04 | disposition home or self-care (01) ==
LOC: C.SDS 08:02
PROVIDERS: ATTEND Urology
DX: Z46.6 Encounter for fitting and adjustment of urinary device (principal)
CPT/HCPCS: 52310; 88300; J0744; J1170